=== PATIENT | female | born 1985 | race Caucasian/White ===

== ENCOUNTER 2020-05-02 08:39 | Emergency (ER) | payer SELFPAY ==
[2020-05-02 08:44] VITALS: BP 114/77
--- NOTE | 2020-05-02 11:02 | ER Document Report ---
Entered by DAVID MCCRAY SCRIBE 05/02/20 0954 Acting as scribe for:IRVING ALDRICH MD ED General - General Mode of Arrival: Ambulatory Information source: Patient Cannot obtain history due to: Uncooperative - General Chief Complaint: Psych Problem Stated Complaint: MEDICATION REFILL Time Seen by Provider: 05/02/20 09:43 Primary Care Provider: [facility] [Outside] - Follow up as needed Notes: This 34-year-old female patient with a history of schizophrenia and bipolar disorder presents to the emergency department today with complaints of "itching". Patient rubs her arms briefly and then stops itching and is unable to clarify what itches. At triage she was asked what they could do to help her and she responded "figure it out". The patient says "just take some blood or something" and continues with "I do not have a heart or lungs". She refuses to answer questions. A Google search was performed as this patient initially was registered under a birthdate of 05/24/1975 and she had not been seen here before according to that. Google search showed multiple mugshots of the patient with a birthdate of 1985. Once the patients medical record was found it was determined she was just released from the [facility] on 04/20 and she was seen her directly after being released, stating she was homeless. Mental health has evaluated the patient and states that this is her baseline, she is homeless and just wants a place to stay. (IRVING ALDRICH) - Related Data Allergies/Adverse Reactions: No Known Allergies Allergy (Unverified 05/02/20 09:39) Past Medical History - General Information source: [facility] Records Cannot obtain history due to: Uncooperative - Social History Smoking Status: Unknown if Ever Smoked Frequency of alcohol use: None Drug Abuse: None Lives with: Homeless Family History: Reviewed & Not Pertinent Psychiatric Medical History: Reports: Hx Bipolar Disorder, Hx Schizophrenia Surgical Hx: Negative Review of Systems - Review of Systems Constitutional: No symptoms reported EENT: No symptoms reported Cardiovascular: No symptoms reported Respiratory: No symptoms reported Gastrointestinal: No symptoms reported Genitourinary: No symptoms reported Female Genitourinary: No symptoms reported Musculoskeletal: No symptoms reported Skin: See HPI, Other - "itching" Hematologic/Lymphatic: No symptoms reported Neurological/Psychological: No symptoms reported -: Yes All other systems reviewed and negative Physical Exam - Vital signs Vitals: Temp Pulse Resp BP Pulse Ox 99.0 F 80 16 114/77 95 05/02/20 08:43 05/02/20 08:43 05/02/20 08:43 05/02/20 08:43 05/02/20 08:43 - Notes Notes: Physical Exam: General: Alert, uncooperative. Refuses to answer most questions although she does state she is here for itching. She rubs her arms briefly but does not scratch throughout the entire interaction. She is unable to clarify what itches. HEENT: Normocephalic. Atraumatic. PERRLA. Extraocular movements intact. Oropharynx clear. Neck: Supple. Respiratory: No respiratory distress. Clear and equal breath sounds bilaterally. Cardiovascular: Regular rate and rhythm. Abdominal: Normal Inspection. No distension. Extremities: Moves all four extremities. Neurological: Normal speech. Psychological: Odd affect. Skin: Warm. Dry. Normal color. No rashes. (IRVING ALDRICH) Course - Vital Signs Vital signs: Temp Pulse Resp BP Pulse Ox 99.0 F 80 16 114/77 95 05/02/20 08:43 05/02/20 08:43 05/02/20 08:43 05/02/20 08:43 05/02/20 08:43 Discharge - Discharge Clinical Impression: Homeless single person, Schizoaffective disorder, bipolar type Condition: Stable Disposition: HOME, SELF-CARE Additional Instructions: You have been evaluated both medical and behavioral health teams have been deemed appropriate for discharge. You are highly encouraged to follow through with mental health recommendations which include filling your prescriptions he received on 04/20/2020 and obtaining an outpatient mental health provider. You have been provided local resources of area providers including mobile crisis contact information during your previous visit and this visit. Providers that accept patients with no insurance have been circled for you for easier reference. You have also been provided a local resource list of economic resource assistance which includes longterm information, soup kitchen, food rodriguez, and other economic resources programs. AT ANY TIME, IF YOUR SYMPTOMS CHANGE SIGNIFICANTLY OR WORSEN OR YOU DEVELOP NEW SYMPTOMS, RETURN TO THE EMERGENCY DEPARTMENT IMMEDIATELY FOR RE-EVALUATION. Referrals: [facility] [Outside] - Follow up as needed I personally performed the services described in the documentation, reviewed and edited the documentation which was dictated to the scribe in my presence, and it accurately records my words and actions.
--- NOTE | 2020-05-02 11:03 | PSYCHOLOGICAL NOTE ---
Psych Note - Psych Note Date seen by psych provider: 05/02/20 Time seen by psych provider: 10:28 Psych Note: Patient has second chart [id number] Patient presented to [facility] ED via POV providing multiple different concerns to different staff members. Patient is highly irritable and attempting to sleep; however, when reminded she must engage in evaluation/treatment otherwise she will have to leave the emergency department, it is noted the patient will answer questions. Patient confirms she has not had success in getting Medicare, Medicaid, or disability. She has not filled her prescriptions that were provided to her on 04/20/2020 during her last [facility] ED visit. Patient expresses frustration in which she identifies as "getting no help from anyone or anywhere." When patient is asked again how [facility] can be of assistance to the patient, patient orders clinician out of the room. Patient is again in treatment in order to be able to stay for treatment reminded she must engage. Patient then reports she will have blood drawn. Patient was asked again what [facility] staff can go to assist her; patient got up and walked into the bathroom stating she was getting away from clinician since the clinician was not leaving the room. Patient is alert and orientated to person, place, time and circumstance. Mood is irritable with congruent affect. At this time there is no behaviours indicating she is responding to internal stimuli. Patient is cleared able to engage in organized and linear thought processes and is goal orientated when reminded she needs to engage in treatment would would have to leave. While patient was irritable and agitated with clinician, she demonstrated good insight, judgment and impulse control by removing herself from a situation she felt was making her angry and did not make any verbal or physical threats. Chart review: Patient has been in [facility] since 2018. Patient has a documented presentation of irritability and minimal engagement with [facility] Staff. Patient reports diagnosis of Schizoaffective; bipolar type. There is history of substance abuse and noncompliance with psychiatric medications. Patient's prescriptions from longterm were: (was provided prescription on 04/20/2020) Topomax 25MG twice a day (0700, 1700) Risperdal 2MG daily (1700) Clinical Presentation: Homelessness Irritability Transition from longterm after 20 days back into society; released from longterm on 04/20/2020 Impression/Plan: Patient is cleared from acute psychiatric services. At this time, the patient is presenting irritable and just wants to sleep. She is currently able to clearly articulate her needs and wants. At this time there is no behaviours indicating she is responding to internal stimuli. Patient is cleared able to engage in organized and linear thought processes and is goal orientated when reminded she needs to engage in treatment would would have to leave. While patient was irritable and agitated with clinician, she demonstrated good insight, judgment and impulse control by removing herself from a situation she felt was making her angry and did not make any verbal or physical threats. She is upset that she is homeless, received no assistance with Medicaid, medicare or disability and she is unable/unwilling to fill her prescriptions. There is documented history of the patient's baseline being highly irritable with minimal engagement. Patient was last evaluated on 04/20/2020 after being released from longterm. During that visit she was provided prescriptions. She has been provided local resource list of area providers, mobile crisis contact information, and economic assistance programs and facilities. Dr. Nava was consulted on the care and management of this patient; attending physician is in agreement with recommendations and disposition.
== END 2020-05-02 11:16 | disposition home or self-care (01) ==
LOC: ER 08:39
DX: F25.0 Schizoaffective disorder, bipolar type (principal); R45.4 Irritability and anger; Z59.0 Homelessness; L29.9 Pruritus, unspecified
CPT/HCPCS: 99285